=== PATIENT | female | born 1955 | race Caucasian/White ===

== ENCOUNTER → 2017-04-14 | Outpatient (CLI) | payer BC ==
[~2017-04-14] MED LIST: DOXYCYCLINE 10100 MG PO; FLAGYL500 MG PO; LEVAQUIN 750MG750 M1 PO; MULTIPLE VITAMI1 CAP PO; NEXIUM 40MG40 MG PO; NORCO 325 MG-51 TAB PO; PRILOSEC 20MG20 MG PO; PROBIOTIC FORMU1 CAP PO; ZYRTEC 10MG10 MG PO
== END ==
LOC: MC.RAD 13:35
DX: Z12.31 Encounter for screening mammogram for malignant neoplasm of breast (principal)

== ENCOUNTER → 2017-08-20 | Outpatient (CLI) | payer BC | LOC: COL.PUL 09:53 | DX: J45.901 Unspecified asthma with (acute) exacerbation (principal) | CPT/HCPCS: J7674 ==

== ENCOUNTER → 2018-11-27 | Outpatient (CLI) | payer BC | LOC: MC.RAD 08:59 | DX: Z12.31 Encounter for screening mammogram for malignant neoplasm of breast (principal) ==

== ENCOUNTER → 2018-12-03 | Outpatient (CLI) | payer BC | LOC: MC.RAD 13:47 | DX: N63.10 Unspecified lump in the right breast, unspecified quadrant (principal); N63.20 Unspecified lump in the left breast, unspecified quadrant; N60.02 Solitary cyst of left breast ==

== ENCOUNTER → 2018-12-09 | Outpatient (CLI) | payer BC | LOC: MC.RAD 09:43 | DX: N63.10 Unspecified lump in the right breast, unspecified quadrant (principal); Z98.82 Breast implant status ==

== ENCOUNTER → 2019-07-15 | Outpatient (CLI) | payer BC | LOC: MC.RAD 09:51 | DX: N63.10 Unspecified lump in the right breast, unspecified quadrant (principal); Z98.82 Breast implant status | CPT/HCPCS: G0279 ==

== ENCOUNTER 2019-09-20 15:55 | Outpatient (CLI) | payer BC ==
[~2019-09-20] VITALS: Ht 172.7 cm; Wt 73.6 kg
[~2019-09-20 15:55] MED LIST changes: -MULTIPLE VITAMI1 CAP PO; +MULTIPLE VITAMI1 TA5 PO
[2019-09-20] MEDS ORDERED: CALCIUM CARBON650 M2 PO (16:10)
[2019-09-20] MEDS ORDERED: VITAMIN D31000 I1 PO (16:15)
[2019-09-20] MEDS ORDERED: VITAMIN K0.1 MG PO (16:16)
[2019-09-20] MEDS ORDERED: INDERAL80 MG PO (16:17)
[2019-09-20 16:18] VITALS: BP 136/75; PULSE 74
[2019-09-20] MEDS ORDERED: PREMARIN VAG42.5 GM VG (16:18)
== END 2019-09-20 19:17 | disposition home or self-care (01) ==
LOC: EUO 15:55
DX: M81.0 Age-related osteoporosis without current pathological fracture (principal)
CPT/HCPCS: J3489

== ENCOUNTER → 2019-12-02 | Outpatient (CLI) | payer BC ==
[~2019-12-02] MED LIST changes: +CALCIUM CARBON650 M2 PO; +INDERAL80 MG PO; +PREMARIN VAG42.5 GM VG; +VITAMIN D31000 I1 PO; +VITAMIN K0.1 MG PO
== END ==
LOC: MC.RAD 11:22
DX: Z12.31 Encounter for screening mammogram for malignant neoplasm of breast (principal)

== ENCOUNTER → 2021-01-03 | Outpatient (CLI) | payer BC | LOC: MC.RAD 12:53 | DX: Z12.31 Encounter for screening mammogram for malignant neoplasm of breast (principal); N64.89 Other specified disorders of breast ==

== ENCOUNTER → 2021-01-10 | Outpatient (CLI) | payer BC | LOC: MC.RAD 12:41 | DX: N63.10 Unspecified lump in the right breast, unspecified quadrant (principal) ==

== ENCOUNTER → 2021-01-17 | Outpatient (CLI) | payer BC | LOC: MC.RAD 10:46 | DX: N60.01 Solitary cyst of right breast (principal) ==

== ENCOUNTER → 2021-05-22 | Outpatient (CLI) | payer BC | LOC: COL.RAD 11:31 | DX: J18.9 Pneumonia, unspecified organism (principal); J98.11 Atelectasis; L90.5 Scar conditions and fibrosis of skin ==